=== PATIENT | female | born 1950 | race Two or more races ===

== ENCOUNTER 2016-11-08 14:00 | Emergency (ER) | payer BC ==
[2016-11-08 14:13] VITALS: TEMP 97.9; BMI 20.7
[2016-11-08] MEDS ORDERED: SODIUM CHLORIDE 0.9% 10 ML FLUSH FLUSH PRN (14:35)
[2016-11-08] MEDS ORDERED: NS 1,000 ML IV ONE (14:35)
[2016-11-08] MEDS ORDERED: PROMETHAZINE 25 MG/ML VIAL IV ONE (14:35)
[2016-11-08 14:36] LABS: LEUKOCYTES/URINE 2+ (NEGATIVE); NITRITE/URINE NEG (NEGATIVE); URINE OCCULT BLOOD NEG (NEG/TRACE)
--- NOTE | 2016-11-08 14:38 | EDPRACDOC ---
- General Information Chief Complaint: Allergic Reaction Stated Complaint: ALLERGIC REACTION Time Seen by Provider: 11/08/16 14:16 Information Source: Patient Home Medications: Home Medications Lisinopril/Hydrochlorothiazide [Lisinopril-Hctz 10-12.5 mg Tab] 1 tab PO DAILY 08/02/14 Ciprofloxacin HCl [Cipro] 500 mg PO BID #14 tab 11/08/16 Dicyclomine HCl [Bentyl] 20 mg PO Q8H PRN #20 tab 11/08/16 Metformin HCl [Metformin HCl ER] 750 mg PO BID 11/08/16 Nitrofurantoin Monohyd/M-Cryst [Nitrofurantoin [place]-Mcr 100 mg] 100 mg PO .BID X 7D 11/08/16 Ondansetron HCl [Zofran] 4 mg PO Q8H PRN #15 tab 11/08/16 Ondansetron HCl [Zofran] 4 mg PO Q8H PRN #15 tab 11/08/16 Oxybutynin [Ditropan] 5 mg PO BID 11/08/16 Allergies/Adverse Reactions: Allergies Allergy/AdvReac Type Severity Reaction Status Date / Time No Known Allergies Allergy Verified 11/08/16 14:14 - History of Present Illness HPI: Pt c/o abd pain, n/v x 1 and diarrhea x 3, tingling in hands, palpitations after taking natural supplement. Denies fever, earache, sore throat, congestion , cough, cp, sob, changes in bladder, rash, difficult swallowing. Exposed to: Medication Symptoms started: Hours Symptoms Developed: Reports: Other (n/v/d, abd pain) Reaction Severity: Shortness of breath: None, Rash: None, Difficult swallowing: None, Prurits: None Modifying factors: improves with: Not used Reaction Location: Reports: Other (abd) Relevant History of: Denies: O, Asthma, Prior similar episodes, Urticaria Associated Signs and Symptoms: Reports: Abdominal Pain ED Past Medical History - History Reviewed Yes Nurses notes reviewed and agree except as marked - Patient Medical History Cardiac History: Reports: Hypertension Psychological History: Denies: Depression Systemic History: Denies: Cancer Surgical History: Reports: Hysterectomy - Family Medical History Reports: Diabetes, Stroke - Social Medical History Smoking Status: Never smoker ETOH: None Substance Abuse: None EDM Review of Systems - Review of Systems Constitutional: No Symptoms Reported. negative: Fever, Chills, Weakness, Fatigue, Loss of Appetite Ears: No Symptoms Reported. negative: Pain, Hearing Loss, Drainage, Ear Pulling Throat: No Symptoms Reported. negative: Pain, Swelling Nose: No Symptoms Reported. negative: Congestion, Bleeding, Discharge, Injection, Swelling, Deformity, Ecchymosis, Tender, Abrasion, Laceration Mouth: No Symptoms Reported. negative: Pain, Drooling Respiratory: No Symptoms Reported. negative: Cough, Brassy Cough, Barky Cough, Shortness of Breath, Wheezing, Hemoptysis Cardiovascular: No Symptoms Reported. negative: Chest Pain, Palpitations, Syncope, Edema, Orthopnea, PND, Skin Mottling, Cyanosis Gastrointestinal: Diarrhea, Nausea, Pain, Vomiting Genitourinary: No Symptoms Reported. negative: Dysuria, Hematuria, Frequency, Discharge, Bleeding, Testicular Pain, Neurological: No Symptoms Reported. negative: Headache, Dizziness, Seizure, Numbness, Weakness, Speech Difficulty, Gait Difficulty Musculoskeletal: No Symptoms Reported. negative: Neck, Chestwall, Ribs, Back, Shoulder, Arm, Elbow, Forearm, Wrist, Hand, Pelvis, Hip, Femur, Knee, Leg, Ankle , Foot Integumentary: No Symptoms Reported. negative: Itching, Rash, Bruising, Wound Allergic/Immunologic: No Symptoms Reported. negative: Hives, Itching Hematologic: No Symptoms Reported. negative: Lymphadenopathy, Easy Bruising, Easy Bleeding Psychiatric: Anxiety. negative: No Symptoms Reported, Depression, Hallucinations, Insomnia, Suicidal - Physical Exam Constitutional: Alert Oriented to: Time, Person, Place Last recorded Vital Signs: Last Vital Signs Temp 97.9 F 11/08/16 14:08 Pulse 77 11/08/16 14:08 Resp 18 11/08/16 14:08 BP 169/68 11/08/16 14:08 Pulse Ox 99 11/08/16 14:08 Oxygen Pulse Oxygen Saturation 99 O2 Device Room Air Oxygen Flow Rate Fraction of Inspired Oxygen ( FIO2) - HEENT Head: Normal ( normocephalic) Eye Exam: Normal (PERRL, EOMI, Sclera white) Oropharynx: Normal (Pharynx:Moist without exudate,Gums-no swelling) Tympanic Membrane: Normal ENT EAC: Normal Nose: No Symptoms Reported (septum midline) Neck: Normal (FROM, trachea at midline) - Respiratory/Cardiovascular Respiratory: Normal - CTA (BBS clear to auscultation without adventitious sounds ) Cardiovascular: Normal (RRR without murmur, gallop or rub) - GI Auscultation: Normal (NABS) Palpation: Normal (Soft,No rebound or guarding, non distended) Tenderness: Non tender - Musculoskeletal Back: Normal (Non-Tender) Extremities: Normal (Normal tone, Pulses 2+ No cyanosis or edema, FROM) - Integumentary Skin: Normal, Warm, Dry Lymphatics: Normal (no adenopathy) - Neurologic Memory Impaired: Normal Motor Function: Normal (Normal tone, Pulses 2+ No cyanosis or edema, FROM) Mood Description: Anxious Perception: Normal ED Allergic Reaction Exam - HEENT Eye Exam: Normal Tongue: Normal Palate: Normal Buccal Mucosa: Normal Oropharynx: Normal (Moist) Neck: Normal - Integumentary Skin: Normal, Warm, Dry Skin Lesion: NO Lymphatics: Normal (No adenopathy) - Differential Diagnosis Drug Reaction - Results 11/08/16 15:15 11/08/16 15:15 11/08/16 15:46 Laboratory Results - last 24 hr 11/08/16 11/08/16 11/08/16 14:15 15:15 15:15 WBC 8.8 RBC 4.83 Hgb 13.9 Hct 41.3 MCV 85 MCH 28.8 MCHC 33.7 RDW 13.1 Plt Count 215 MPV 9.5 Neut % (Auto) 76.5 H Lymph % (Auto) 14.4 L [place] % (Auto) 6.8 Eos % (Auto) 0.7 Baso % (Auto) 1.6 Absolute Neuts (auto) 6.69 Absolute Lymphs (auto) 1.23 Sodium 137 Potassium 4.1 Chloride 100 Carbon Dioxide 28 Anion Gap 13 BUN 15 Creatinine 0.50 L Estimated GFR (MDRD) > 60 Glucose 108 H Calculated Osmolality 266 L Calcium 8.8 Total Bilirubin 0.7 AST 36 ALT 29 Alkaline Phosphatase 71 Total Protein 7.7 Albumin 4.3 Urine Color Yellow Urine Clarity Clear Urine pH 9.0 H Ur Specific [place] </=1.005 Urine Protein 1+ H Urine Glucose (UA) Neg Urine Ketones Neg Urine Occult Blood Neg Urine Nitrite Neg Urine Bilirubin Neg Urine Urobilinogen <2.0 Ur Leukocyte Esterase 2+ H Urine RBC 2-5 Urine WBC 10-20 H Ur Epithelial Cells Occ Urine Bacteria Few Hyaline Casts 5-10 H - EKG EKG #1 EKG Time: 14:45 Rate: bpm: 63 [place]: Normal Rhythm: NSR Block: None ST: Normal Comments: no old ekg Decision Time to Discharge: 15:46 - Departure Disposition: Home Condition: Good Final Diagnosis: Adverse reaction to drug UTI (urinary tract infection) Qualifiers: Urinary tract infection type: acute cystitis Hematuria presence: without hematuria Qualified Code(s): N30.00 - Acute cystitis without hematuria Instructions: Urinary Tract Infection in Women (ED), Dysuria, Adverse Drug Reaction (ED) Education/Counseling Given To: Patient Education/Counseling Given Regarding: Diagnosis, Treatment, Follow Up Referrals: Chely Jefferson NP [Primary Care Provider] - One Week Prescriptions: Ciprofloxacin HCl [Cipro] 500 mg PO BID #14 tab Dicyclomine HCl [Bentyl] 20 mg PO Q8H PRN #20 tab PRN Reason: Pain Ondansetron HCl [Zofran] 4 mg PO Q8H PRN #15 tab PRN Reason: Nausea/Vomiting Ondansetron HCl [Zofran] 4 mg PO Q8H PRN #15 tab PRN Reason: Nausea/Vomiting Additional Instructions: Stop using natural supplement mediation. Drink sips of Gatorade every 2-3 minutes while awake. Do NOT drink large volumes of fluid at once. If you vomit, take the nausea-vomiting medicine prescribed, wait ~ 30 minutes, and restart the sipping process. Return to the Emergency Department if you think you are getting dehydrated, have persistent abdominal pain that is unrelenting, have worse or different symptoms, or any concerns.
[2016-11-08 15:24] LABS: AUTOMATED BASOPHIL 1.6 % (0-2); AUTOMATED EOSINOPHIL 0.7 % (0-5); AUTOMATED LYMPH 14.4 % (17-44); AUTOMATED MONOCYTE 6.8 % (3-10); AUTOMATED NEUTROPHIL 76.5 % (45-76); MPV 9.5 fL (7.4-10.4)
[2016-11-08 15:36] LABS: BLOOD UREA NITROGEN 15 MG/DL (7-17); CALCIUM 8.8 MG/DL (8.4-10.2); CALCULATED OSMOLALITY 266 MOs/Kg (270-290); CHLORIDE 100 mEq/L (98-107); GLUCOSE 108 MG/DL (70-99); SODIUM LEVEL 137 mEq/L (137-146); TOTAL PROTEIN 7.7 G/DL (6.3-8.2)
[2016-11-08 16:25] VITALS: BP 166/72; PULSE 73
== END 2016-11-08 16:20 | disposition home or self-care (01) ==
LOC: ED 14:00
DX: N30.00 Acute cystitis without hematuria (principal); T50.905A Adverse effect of unspecified drugs, medicaments and biological substances, initial encounter; X58.XXXA Exposure to other specified factors, initial encounter; R06.02 Shortness of breath; R19.7 Diarrhea, unspecified; R20.2 Paresthesia of skin; I10 Essential (primary) hypertension; Z79.899 Other long term (current) drug therapy
CPT/HCPCS: 36415; 80053; 81001; 85025; 93005; 96360; 99283; J2550